=== PATIENT | male | born 1965 | race American Indian/Alaskan Native ===

== ENCOUNTER 2017-07-19 10:32 | Day surgery (SDC) | payer OTHER ==
[2017-07-19] MEDS ORDERED: QUELICIN ONE (10:49)
[2017-07-19] MEDS ORDERED: DIPRIVAN 10 MG/ML IV ONE ×2 (10:49)
[2017-07-19] MEDS ORDERED: NACL 0.9% 1000 ML 1,000 ML IV SCH (11:00)
[2017-07-19] MEDS ORDERED: WATER FOR IRRIG STERILE IR ONE (11:36)
[2017-07-19] MEDS ORDERED: WATER FOR IRRIG STERILE ONE (11:36)
--- NOTE | 2017-07-19 12:13 | Operative Report ---
Operative Report Operative Report: Date of procedure: 07/19/2017 Procedure: Colonoscopy. Attending physician: Morteza Sommers MD Varnisher Plasticoater: Morteza Sommers MD Indication: Patient is a 52-year-old male who presents for screening colonoscopy. A colonoscopy service to evaluate patient for colorectal cancer screening. Consent: Informed consent was obtained after advising the patient and family regarding nature of this procedure, its indications, potential benefits as well as possible complications including but not limited to bleeding perforation and adverse reaction to medication, infection as well as other cardiopulmonary complications. An informed written and verbal consent was then obtained after due opportunity was provided for questions and answers. Monitoring: Patient was monitored continuously with pulse oximetry and electrocardiographic recordings as well as blood pressure recordings. Vital signs remained stable throughout this procedure with no untoward events. Preoperative assessment: Patient was assessed immediately prior to this procedure for capacity to tolerate monitored anesthesia care and moderate sedation as well as general anesthesia. Patient's ASA classification is 2, Mallampati class is 2, Hyomental distance is 3. Instrument: Mysafeplaceinon video colonoscope Medications: Propofol given intravenously in divided doses. For details please refer to anesthesia records. Description of procedure: Patient was placed in the left lateral decubitus position after achieving sedation, a digital rectal examination was performed following which the colonoscope was introduced into the anal verge and advanced to the cecum which was identified by the cecal valve, the appendiceal orifice, as well as by the cecal strap and direct transillumination. The colonoscope was subsequently withdrawn with careful inspection of all mucosal surfaces. Patient tolerated this procedure well and was subsequently taken to the recovery room. The following findings were noted. Findings: The entirety of the colon was normal with no mucosal lesions. On the retroflex view at the anal verge, patient had prominent internal hemorrhoids. Impression: Internal hemorrhoids, otherwise normal colonoscopy. Plan: High-fiber diet. Repeat colonoscopy in 10 years.
--- NOTE | 2017-07-19 12:15 | Discharge Summary ---
Short Stay Discharge Plan Activity: advance as tolerated Weight Bearing Status: Weight Bear as Tolerated Diet: regular Additional Instructions: Post Sedation D/C Instructions When you return home you may resume your regular diet unless otherwise directed. -Go directly home from the hospital and rest quietly. You may resume normal activities tomorrow. -Do NOT drive, return to work, operate any machinery or make any important personal or business decisions today. -Do NOT drink any alcohol or take nerve or sleeping drugs. They add to the effects of the medicine still present in your body. Follow up with: EDMUNDO OSBORN MD [Primary Care Provider] - 7 Days
[2017-07-19 13:48] VITALS: BP 117/72
--- NOTE | 2017-07-19 14:37 | Post Anesthesia Evaluation ---
- Post Anesthesia Evaluation Patient Participated: Yes Airway Patent: Yes Stable Respiratory Function: Yes Nausea/Vomiting: No Temp > 96.8F: Yes Pain Manageable: Yes Adequeate Hydration: Yes Anesthesia Complications: No
== END 2017-07-19 10:33 | disposition home or self-care (01) ==
LOC: GIO 10:32
PROVIDERS: ATTEND Internal Medicine Gastroenterology
DX: Z12.11 Encounter for screening for malignant neoplasm of colon (principal); K64.8 Other hemorrhoids
CPT/HCPCS: 45378; J2704; J7030; J0330